=== PATIENT | female | born 1995 | race African-American/Black ===

== ENCOUNTER 2021-05-01 15:50 | Emergency (ER) | payer BC ==
[~2021-05-01] VITALS: Ht 175.3 cm; Wt 127.0 kg
[2021-05-01 16:09] VITALS: BP 124/90
--- NOTE | 2021-05-01 16:20 | PHYS DOC ---
Past Medical History Past Surgical History: No Surgical History Smoking Status: Never Smoker Alcohol Use: None General Adult EDM: Chief Complaint: ANKLE PROBLEM HPI: HPI: Patient is a 26 year old female who presents with states lately she has been more on the go and eating more fast food than usual. She states that she has noticed that when she goes to take off her shoes and socks that she has more impressions in her bilateral lower legs. She states that he gets better after she is not been up on her feet and her feet are up. She states that she works at night and the patient is asleep at night and so she is just sitting in a chair. Patient denies nausea, vomiting, diarrhea, abdominal pain, chest pain, shortness of breath, fever, cough, headache, dizziness, vision change, numbness or tingling. Patient's only history is asthma. Review of Systems: Review of Systems: Constitutional: Denies fever or chills. [] Eyes: Denies change in visual acuity. [] HENT: Denies nasal congestion or sore throat. [] Respiratory: Denies cough or shortness of breath. [] Cardiovascular: Denies chest pain or + bilateral lower extremity edema. [] GI: Denies abdominal pain, nausea, vomiting, bloody stools or diarrhea. [] : Denies dysuria. [] Musculoskeletal: Denies back pain or joint pain. [] Integument: Denies rash. [] Neurologic: Denies headache, focal weakness or sensory changes. [] Endocrine: Denies polyuria or polydipsia. [] Lymphatic: Denies swollen glands. [] Psychiatric: Denies depression or anxiety. [] Heart Score: C/O Chest Pain: No Risk Factors: Risk Factors: DM, Current or recent (<one month) smoker, HTN, HLP, family history of CAD, obesity. Risk Scores: Score 0 - 3: 2.5% MACE over next 6 weeks - Discharge Home Score 4 - 6: 20.3% MACE over next 6 weeks - Admit for Clinical Observation Score 7 - 10: 72.7% MACE over next 6 weeks - Early Invasive Strategies Allergies: Allergies: Allergies Coded Allergies Type Severity Reaction Last Updated Verified No Known Drug Allergies 05/01/21 No Physical Exam: PE: Constitutional: Well developed, well nourished, no acute distress, non-toxic appearance. [] HENT: Normocephalic, atraumatic, bilateral external ears normal, oropharynx moist, no oral exudates, nose normal. [] Eyes: PERRLA, EOMI, conjunctiva normal, no discharge. [] Neck: Normal range of motion, no tenderness, supple, no stridor. [] Cardiovascular:Heart rate regular rhythm, no murmur [] Lungs & Thorax: Bilateral breath sounds clear to auscultation [] Abdomen: Bowel sounds normal, soft, no tenderness, no masses, no pulsatile masses. [] Skin: Warm, dry, no erythema, no rash. [] Back: No tenderness, no CVA tenderness. [] Extremities: No tenderness, no cyanosis, no clubbing, ROM intact, lower extremity 1+ edema. [] Neurologic: Alert and oriented X 3, normal motor function, normal sensory function, no focal deficits noted. [] Psychologic: Affect normal, judgement normal, mood normal. [] Current Patient Data: Vital Signs: Vital Signs Date Time Temp Pulse Resp B/P (MAP) Pulse Ox O2 Delivery O2 Flow Rate FiO2 05/01/21 16:09 98.3 89 16 124/90 98 Room Air 98.3 EKG: EK AND READ BY DR MENDEZ SINUS RHYTHM AND NO STEMI Radiology/Procedures: Radiology/Procedures: [] Course & Med Decision Making: Course & Med Decision Making Pertinent Labs and Imaging studies reviewed. (See chart for details) See HPI. Alert and oriented x4. Ambulatory steady gait. Speaks in full clear sentences. Skin pink warm and dry. Bilateral lower nonpitting edema only 1+. Vital signs are within normal limits. Lungs are clear all station all lobes. Patient is stable and in no distress. Blood work unremarkable. EKG shows no acute findings. Patient follow-up with a primary care physician. [] Dragon Disclaimer: Dragon Disclaimer: This electronic medical record was generated, in whole or in part, using a voice recognition dictation system. Departure Departure Impression: Primary Impression: Peripheral edema Disposition: HOME / SELF CARE / HOMELESS Condition: STABLE Referrals: UNKNOWN PCP NAME (PCP) Patient Instructions: Peripheral Edema Additional Instructions: Drink plenty of fluids. Stay away from salty foods. Follow-up with a primary care provider soon as possible. If begin having shortness of breath or chest pain with increased swelling return emergency room. BAFUS,TIFFANI M [employer] C[employer]ER May 01, 2021 16:20
[2021-05-01 16:52] LABS: BASO % 0 % (0-3); EOS # 0.1 x10^3/uL (0.0-0.7); EOS % 1 % (0-3); HEMATOCRIT 33.3 % (36.0-47.0); HEMOGLOBIN 10.9 g/dL (12.0-15.5); LYMPH # 2.4 x10^3/uL (1.0-4.8); LYMPH % 34 % (24-48); MEAN CORPUSCULAR HEMOGLOBIN 25 pg (25-35); MEAN CORPUSCULAR HGB CONC 33 g/dL (31-37); MEAN CORPUSCULAR VOLUME 75 fL (79-100); MONO # 0.6 x10^3/uL (0.0-1.1); MONO % 9 % (0-9); NEUT # 3.9 x10^3/uL (1.8-7.7); NEUT % 55 % (31-73); PLATELET COUNT 247 x10^3/uL (140-400); RED BLOOD COUNT 4.42 x10^6/uL (3.50-5.40); RED CELL DISTRIBUTION WIDTH 16.6 % (11.5-14.5)
[2021-05-01 17:16] LABS: CALCIUM 8.7 mg/dL (8.5-10.1); CREATININE 0.9 mg/dL (0.6-1.0); GFR 90.2
[2021-05-01 17:21] LABS: ALBUMIN 3.4 g/dL (3.4-5.0); ALBUMIN/GLOBULIN RATIO 0.9 (1.0-1.7); TOTAL BILIRUBIN 0.1 mg/dL (0.2-1.0); TOTAL PROTEIN 7.2 g/dL (6.4-8.2)
--- NOTE | 2021-05-03 03:43 | EKG ---
[facility] [address] [place] [id number] Test Date: 2021-05-01 Test Time: 16:37:32 Pat Name: OKSANA ALVAREZ Department: Room: Gender: F Spine Nurse: : [id number] Requested By: TIFFANI PLASCENCIA Order Number: [id number] Reading MD: Measurements Intervals [place] Rate: 76 P: 41 [place]: 156 QRS: 27 QRSD: 80 T: 45 QT: 376 QTc: 427 Interpretive Statements SINUS RHYTHM NON SPECIFIC T ABNORMALITY BORDERLINE ECG RI6.02 No previous ECG available for comparison
== END 2021-05-01 17:48 | disposition home or self-care (01) ==
LOC: ER 15:50
DX: R60.0 Localized edema (principal)
CPT/HCPCS: 36415; 80053; 83880; 84484; 85025; 93005; 99284